=== PATIENT | male | born 1950 | race Caucasian/White ===

== ENCOUNTER 2020-03-08 23:35 | Emergency (ER) | payer MEDICARE, BC, SELFPAY ==
[2020-03-08 23:39] VITALS: BP 152/88; PULSE 85; RESP 18; TEMP 37.6; O2SAT 96; BMI 28.7
--- NOTE | 2020-03-08 23:43 | XR_ITS ---
WS: [id number] XR wrist RT min 3V* [id number] REASON FOR EXAM: injury FINDINGS: A small ossicle is seen adjacent to the styloid process of the radius this appears to be re mote and not fracture. The remaining ulna radius were normal. The carpal bones and metacarpals were normal. XR/XR wrist RT min 3V* [id number] IMPRESSION: Negative right wrist for acute fractures.
--- NOTE | 2020-03-08 23:59 | ED_ITS ---
HPI - Extremity Problem General: Chief complaint: Extremity Injury, Upper Stated complaint: R ARM INJURY Time Seen by Provider: 03/08/20 23:43 Source: patient Mode of arrival: ambulatory Limitations: no limitations History of Present Illness: HPI Narrative: Patient is a 69-year-old male who presents to ED today with complaints of right wrist pain. Patient states he was up on a truck getting something out of his toolbox while holding onto a strap when the strap broke and caused him to fall onto the right wrist. No other injury sustained per patient. MD Complaint: joint paint Onset (ago): hour(s) Pain Consistency: constant Location: right Quality: constant Radiation: none Relieving factors: immobilization Exacerbating factors: range of motion and palpation Associated symptoms: Reports no associated symptoms; Deny chest pain Review of Systems Eyes: Denies: change in vision or blurry vision Card: Denies: chest pain Resp: Denies: shortness of breath GI: Denies: abdominal pain Musc: Reports: joint pain; Denies: neck pain, back pain, extremity pain, extremity swelling or redness Neuro: Denies: headache, numbness in extremities, weakness in extremities or changes in sensation [facility] ED PFSH: Medical History (Updated 03/09/20 @ 00:14 by MARTA Nagel) ASHD (arteriosclerotic heart disease) Essential (primary) hypertension GERD (gastroesophageal reflux disease) Panlobular emphysema Surgical History (Updated 12/31/19 @ 10:14 by Bernardo Guerrier MD) History of colonoscopy History of esophagogastroduodenoscopy (EGD) Social History (Updated 12/31/19 @ 09:43 by DANTE Childs) Smoking and tobacco status: current every day smoker Alcohol intake: current Alcohol type: beer Marital status: History of recent travel: No Physical Exam Const: COMMON NORMALS: no apparent distress, average body habitus, oriented x3, no limitations, healthy appearing, alert and well nourished ORIENTATION/CONSCIOUSNESS: Yes oriented to person, Yes oriented to place and Yes oriented to time Neck/C-Spine: COMMON NORMALS: full ROM CERVICAL SPINE: Yes cervical ROM normal, No pain with cervical ROM and No cervical spine tenderness Chest: COMMONS NORMALS: inspection of chest normal and palpation of chest normal Resp: COMMON NORMALS: normal respiratory effort and clear to auscultation bilaterally AUSCULTATION: clear to auscultation bilaterally Cardio: COMMON NORMALS: regular rate and regular rhythm RATE: regular rate RHYTHM: regular rhythm Back/Pelvis: COMMON NORMALS: thoracic and lumbar spine normal to inspection, no thoracic nor lumbar tenderness and thoraco-lumbar ROM normal Extremity: GENERAL: Yes normal exam except as noted RIGHT UPPER EXTREMITY: Yes wrist (TTP of distal radius; swelling present; no obvious deformity ) Right wrist: Yes ROM (severely limited secondary to pain) Neuro: MANN COMA SCALE: document GCS findings Mann coma scale eye opening: Spontaneous [place] coma scale verbal response: Orientated [place] coma scale motor response: Obey commands Mann coma scale total score: 15 COMMON NORMALS: oriented x3, moves all extremities, no focal motor deficits, no sensory deficits noted and gait normal SENSORIUM/ORIENTATION: Yes alert, Yes oriented to person, Yes oriented to place and Yes oriented to time Skin: COMMON NORMALS: no rashes or lesions noted GENERAL SKIN EXAM: no rashes or lesions noted Course Vital Signs: Vital signs: Vital Signs Temperature 99.6 F 03/08/20 23:39 Pulse Rate 85 03/08/20 23:39 Respiratory Rate 12 03/09/20 00:05 Blood Pressure 152/88 03/08/20 23:39 Pulse Oximetry 96 03/08/20 23:39 MDM - Extremity (Nontraumatic) MDM Narrative: Medical decision making narrative: based on clinical exam I will go ahead and splint and have him follow up with orthopedics Imaging Data^: R wrist XR: My impression: I don't see any obvious fractures-maybe questionable avulsion off distal radius/possible impaction fx Discharge Plan Discharge Patient Disposition: Home, Self-Care Clinical Impression: Injury of right wrist Qualifiers: Encounter type: initial encounter Qualified Code(s): S69.91XA - Unspecified injury of right wrist, hand and finger(s), initial encounter Condition: Stable Prescriptions: New hydrocodone-acetaminophen 5-325 mg tablet 1 tab PO Q6H PRN (Reason: pain) Qty: 15 RF: 0 No Action lisinopril 10 mg tablet 5 mg PO DAILY Qty: 90 RF: 3 omeprazole 20 mg capsule,delayed release(DR/EC) 20 mg PO DAILY Qty: 90 RF: 3 citalopram 40 mg tablet 40 mg PO DAILY Qty: 90 RF: 3 albuterol sulfate [Ventolin HFA] 90 mcg/actuation HFA aerosol inhaler 2 puff INHALATION Q6H PRNRF: 0 folic acid 400 mcg tablet 0.4 mg PO DAILY RF: 0 mecobalamin (vitamin B12) 1,000 mcg tablet,disintegrating 1,000 mcg SUBLINGUAL DAILY RF: 0 aspirin [Adult Aspirin Regimen] 81 mg tablet,delayed release (DR/EC) 81 mg PO DAILY RF: 0 magnesium 200 mg tablet 400 mg PO DAILY RF: 0 lovastatin 40 mg tablet 80 mg PO .AT BEDTIME Qty: 180 RF: 3 Discharge Orders: Discharge Order (Routine); Ordered 03/09/20 Ordered By: Rosi Jain Activity Restrictions/Additional Instructions: Case management should contact you in the next 1 to 2 days to set you up with an appointment for orthopedic follow-up. Coding Level of Care Code ED Fine Grade Operator for [place]is [place] Exam Comprehensive
[2020-03-09 00:05] VITALS: RESP 12
[2020-03-09] MEDS: morphine 4 mg/mL SDV 1 mL IM (00:05)
[2020-03-09 00:26] VITALS: BP 121/63; PULSE 68; RESP 16; O2SAT 100
--- NOTE | 2020-03-09 12:44 | DCPLANNER ---
manager of care had message to schedule a follow up appointment for patient with ortho. manager of care called the ortho clinic, spoke with Amanda, gave clinic patients information. manager of care was told that patients information would be printed and reviewed. Clinic will call shelter case manager and patient with appointment information.
--- NOTE | 2020-03-10 12:43 | DCPLANNER ---
Kianna from ortho called welfare case worker and informed welfare case worker that both of the numbers that ortho clinic called was not in service and could not leave a message to patient. manager etl called [phone] for patient and [phone] for daughter, unable to speak with patient at this time. Ortho clinic and welfare case worker both unable to reach patient at this time and unable to leave voicemail or message for patient.
== END 2020-03-09 00:27 | disposition home or self-care (01) ==
PROVIDERS: Emergency Provider Physician Assistant
DX: S69.91XA Unspecified injury of right wrist, hand and finger(s), initial encounter (principal); W19.XXXA Unspecified fall, initial encounter; Z79.82 Long term (current) use of aspirin; I10 Essential (primary) hypertension; K21.9 Gastro-esophageal reflux disease without esophagitis; F17.210 Nicotine dependence, cigarettes, uncomplicated
CPT/HCPCS: 12345; 29125; 73110; 96372; 99281; 99283; J2270

== ENCOUNTER → 2020-03-16 09:09 | Outpatient (BNVA) | payer OTHER, SELFPAY | PROVIDERS: Visit Provider Orthopaedic Surgery | DX: S69.91XA Unspecified injury of right wrist, hand and finger(s), initial encounter (principal); X58.XXXA Exposure to other specified factors, initial encounter | CPT/HCPCS: 73100; 73110 ==

== ENCOUNTER 2020-03-16 11:05 | Outpatient (CLI) | payer OTHER, SELFPAY | END 2020-03-16 11:06 | disposition home or self-care (01) | LOC: SPT 11:05 | PROVIDERS: Visit Provider Orthopaedic Surgery | DX: Z46.89 Encounter for fitting and adjustment of other specified devices (principal); S69.81XD Other specified injuries of right wrist, hand and finger(s), subsequent encounter; X58.XXXD Exposure to other specified factors, subsequent encounter | CPT/HCPCS: L3908 ==

== ENCOUNTER → 2020-03-30 15:16 | Outpatient (BNVA) | payer OTHER, SELFPAY | PROVIDERS: Visit Provider Orthopaedic Surgery | DX: S63.501A Unspecified sprain of right wrist, initial encounter (principal); X58.XXXA Exposure to other specified factors, initial encounter | CPT/HCPCS: 73110 ==

== ENCOUNTER → 2020-05-11 09:27 | Outpatient (BNVA) | payer MEDICARE, BC, SELFPAY | PROVIDERS: Visit Provider Nurse Practitioner Family | DX: I10 Essential (primary) hypertension (principal); K21.9 Gastro-esophageal reflux disease without esophagitis; E78.5 Hyperlipidemia, unspecified; E53.8 Deficiency of other specified B group vitamins; J43.1 Panlobular emphysema; I25.10 Atherosclerotic heart disease of native coronary artery without angina pectoris; F41.1 Generalized anxiety disorder; F17.200 Nicotine dependence, unspecified, uncomplicated; Z12.5 Encounter for screening for malignant neoplasm of prostate | CPT/HCPCS: 80053; 80061; 85025; G0103 ==

== ENCOUNTER → 2020-05-23 10:18 | Outpatient (BNVA) | payer MEDICARE, BC, SELFPAY | PROVIDERS: Visit Provider Nurse Practitioner Family | DX: E87.5 Hyperkalemia (principal) | CPT/HCPCS: 80048 ==

== ENCOUNTER → 2020-08-24 10:13 | Outpatient (BNVA) | payer MEDICARE, BC, SELFPAY | PROVIDERS: Visit Provider Nurse Practitioner Family | DX: E87.5 Hyperkalemia (principal); I10 Essential (primary) hypertension; E53.8 Deficiency of other specified B group vitamins | CPT/HCPCS: 80053; 80061; 82607; 85025 ==

== ENCOUNTER → 2020-11-16 11:47 | Outpatient (BNVA) | payer MEDICARE, BC, SELFPAY | PROVIDERS: PCP Nurse Practitioner Family; Visit Provider Nurse Practitioner Family | DX: I10 Essential (primary) hypertension (principal); E78.5 Hyperlipidemia, unspecified; E53.8 Deficiency of other specified B group vitamins | CPT/HCPCS: 80053; 80061; 85025 ==

== ENCOUNTER → 2021-02-20 14:50 | Outpatient (BNVA) | payer MEDICARE, BC, SELFPAY | PROVIDERS: PCP Nurse Practitioner Family; Visit Provider Nurse Practitioner Family | DX: I10 Essential (primary) hypertension (principal); E78.5 Hyperlipidemia, unspecified; E53.8 Deficiency of other specified B group vitamins; F41.1 Generalized anxiety disorder; K21.9 Gastro-esophageal reflux disease without esophagitis | CPT/HCPCS: 80053; 80061; 82607; 83735; 85025 ==

== ENCOUNTER → 2022-03-16 09:43 | Outpatient (BNVA) | payer MEDICARE, BC, SELFPAY | PROVIDERS: PCP Nurse Practitioner Family; Visit Provider Nurse Practitioner Family | DX: Z12.5 Encounter for screening for malignant neoplasm of prostate (principal); I10 Essential (primary) hypertension; I25.10 Atherosclerotic heart disease of native coronary artery without angina pectoris; E53.8 Deficiency of other specified B group vitamins; E78.5 Hyperlipidemia, unspecified; Z12.2 Encounter for screening for malignant neoplasm of respiratory organs | CPT/HCPCS: 80053; 80061; 82607; 85025; G0103 ==

== ENCOUNTER → 2022-04-16 10:11 | Outpatient (BNVA) | payer MEDICARE, BC, SELFPAY | PROVIDERS: PCP Nurse Practitioner Family; Visit Provider Internal Medicine Critical Care Medicine | DX: J44.9 Chronic obstructive pulmonary disease, unspecified (principal); E78.5 Hyperlipidemia, unspecified; I25.10 Atherosclerotic heart disease of native coronary artery without angina pectoris; F17.210 Nicotine dependence, cigarettes, uncomplicated; K21.9 Gastro-esophageal reflux disease without esophagitis; I10 Essential (primary) hypertension | CPT/HCPCS: 99204 ==

== ENCOUNTER 2022-05-03 13:08 | Outpatient (CLI) | payer MEDICARE, BC, SELFPAY ==
--- NOTE | 2022-05-03 12:30 | CT_ITS ---
WS: [id number] LDCT LUNG CANCER SCREENING TECHNIQUE: Noncontrast CT of the chest with coronal and sagittal reformatted images. CLINICAL INFORMATION: Lung cancer screening COMPARISON: None. DLP: 81.71 mGy.cm DIvol: Mean CTDIvol: 1.60 (mGy) All CT scans at [facility] use at least one of these dose optimization techniques: automat ed exposure control; mA and/or kV adjustment per patient size (includes targeted exams where dose is matched to clinical indication); or iterative reconstruction. FINDINGS: Lungs are well aerated. No acute pulmonary infiltrates. Mild chronic emphysematous changes. 6 mm pulmonary nodule LEFT upper lobe laterally. Nodular subsegmental atelectasis/fibrosis in the li ngula. Calcified granulomas LEFT lower lobe. Normal caliber thoracic aorta. Aortic calcification. Coronary calcification. No mediastinal or hilar lymphadenopathy. Small esophageal hiatal hernia. Adrenal glands are normal. Mild thoracic kyphosis. Schmorl's nodes in the mid thoracic spine. CT/CT lung screening [id number] IMPRESSION: Recommend 6 month follow-up 6 mm pulmonary nodule LEFT upper lobe l aterally. LUNG-RADS: 3-Probably Benign FOLLOW UP: 6 Month LDCT
--- NOTE | 2022-05-03 13:24 | PFTS_ITS ---
Date of Study:05/03/22 Date of Dictation: 05/05/22 MECHANICS: Postbronchodilator forced vital capacity (FVC) is normal. Postbronchodilator forced expiratory volume in one second (FEV1) is mildly reduced. FEV1/FVC is reduced. There is significant response to bronchodilator FLOW VOLUME LOOP: Sloping of expiratory limb suggestive of airflow obstruction. LUNG VOLUMES: Total lung capacity (TLC) is normal. Residual volume (RV) is increased suggesting air trapping. DIFFUSING CAPACITY FOR CARBON MONOXIDE: mildly reduced. INTERPRETATION: The Spirometry showed mild airflow obstruction. There is significant response to bronchodilators. Lung volumes suggestive of moderate air trapping. There is mild gas transfer defect. Clinical correlation recommended. MTDD
== END 2022-05-03 13:09 | disposition home or self-care (01) ==
LOC: RAD 13:09
PROVIDERS: PCP Nurse Practitioner Family; Visit Provider Internal Medicine Critical Care Medicine
DX: J44.9 Chronic obstructive pulmonary disease, unspecified (principal); F17.200 Nicotine dependence, unspecified, uncomplicated; E78.5 Hyperlipidemia, unspecified
CPT/HCPCS: 71271; 94060; 94726; 94729

== ENCOUNTER → 2022-05-28 09:09 | Outpatient (BNVA) | payer MEDICARE, BC, SELFPAY | PROVIDERS: PCP Nurse Practitioner Family; Visit Provider Internal Medicine Critical Care Medicine | DX: J44.9 Chronic obstructive pulmonary disease, unspecified (principal); F17.210 Nicotine dependence, cigarettes, uncomplicated; I25.10 Atherosclerotic heart disease of native coronary artery without angina pectoris | CPT/HCPCS: 99214 ==

== ENCOUNTER → 2022-07-13 08:37 | Outpatient (BNVA) | payer MEDICARE, BC, SELFPAY | PROVIDERS: PCP Nurse Practitioner Family; Visit Provider Nurse Practitioner Family | DX: M25.511 Pain in right shoulder (principal) | CPT/HCPCS: 73030 ==

== ENCOUNTER 2022-11-08 10:06 | Outpatient (CLI) | payer MEDICARE, BC, SELFPAY ==
--- NOTE | 2022-11-08 10:30 | CTR_ITS ---
PROCEDURE INFORMATION: Exam: CT Chest Without Contrast; Diagnostic Exam date and time: 11/08/2022 10:53 AM Age: 72 years old Clinical indication: Condition or disease; Lung condition and disease; Pulmonary nodule, solitary; Additional info: 6 month f/u nodule, fibrosis, atelectasis TECHNIQUE: Imaging protocol: Diagnostic computed tomography of the chest without contrast. Radiation optimization: All CT scans at this facility use at least one of these dose optimization techniques: automated exposure control; mA and/or kV adjustment per patient size (includes targeted exams where dose is matched to clinical indication); or iterative reconstruction. COMPARISON: CT lung screening [id number] 05/03/2022 1:54 PM RADIATION DOSE METRICS: Total DLP (mGy-cm): 376.41 FINDINGS: Lungs: COPD, interstitial prominence, and chronic granulomatous disease. Mild parenchymal stranding in the lingula. Stable 4 mm noncalcified lingular nodule. For patients at low risk (minimal or absent history of smoking and of other known risk factors), no routine follow-up is indicated. For patients at high risk (history of smoking or of other known risk factors), consider optional CT Chest at 12 months. (Reference: Jodie). Pleural spaces: No pleural effusion. Heart: Coronary artery calcification. Lymph nodes: Subcentimeter lymph nodes. Vasculature: Calcification and ectasia of the thoracic aorta. Diaphragm: Small hiatal hernia. Stomach and bowel: Questionable wall thickening in the nondistended stomach. Prominent stool. Bones/joints: Schmorl's nodes, vertebral endplate irregularity, and degenerative change. Soft tissues: Unremarkable. CT/CT chest con [id number] IMPRESSION: 1. COPD, interstitial prominence, and chronic granulomatous disease. 2. Stable 4 mm noncalcified lingular nodule. 3. Additional findings as described above.
== END 2022-11-08 10:07 | disposition home or self-care (01) ==
LOC: RAD 10:07
PROVIDERS: PCP Nurse Practitioner Family; Visit Provider Internal Medicine Pulmonary Disease
DX: R91.8 Other nonspecific abnormal finding of lung field (principal); J98.11 Atelectasis; J44.9 Chronic obstructive pulmonary disease, unspecified
CPT/HCPCS: 71250

== ENCOUNTER → 2022-11-26 10:46 | Outpatient (BNVA) | payer MEDICARE, BC, SELFPAY | PROVIDERS: PCP Nurse Practitioner Family; Visit Provider Nurse Practitioner Family | DX: I25.10 Atherosclerotic heart disease of native coronary artery without angina pectoris (principal) | CPT/HCPCS: 80053; 80061; 82607; 83735; 84443; 85025 ==

== ENCOUNTER → 2023-02-04 13:31 | Outpatient (BNVA) | payer MEDICARE, BC, SELFPAY | PROVIDERS: PCP Nurse Practitioner Family; Visit Provider Internal Medicine | DX: I25.10 Atherosclerotic heart disease of native coronary artery without angina pectoris (principal); E78.5 Hyperlipidemia, unspecified; I10 Essential (primary) hypertension; F17.210 Nicotine dependence, cigarettes, uncomplicated; Z79.82 Long term (current) use of aspirin | CPT/HCPCS: 99214 ==

== ENCOUNTER → 2023-04-03 10:16 | Outpatient (BNVA) | payer MEDICARE, BC, SELFPAY | PROVIDERS: PCP Nurse Practitioner Family; Visit Provider Nurse Practitioner Family | DX: E53.8 Deficiency of other specified B group vitamins (principal); I10 Essential (primary) hypertension; E78.5 Hyperlipidemia, unspecified | CPT/HCPCS: 80053; 80061; 82607; 82746; 84443; 85025 ==

== ENCOUNTER → 2023-04-23 15:17 | Outpatient (BNVA) | payer MEDICARE, BC, SELFPAY | PROVIDERS: PCP Nurse Practitioner Family; Visit Provider Internal Medicine Pulmonary Disease | DX: J44.9 Chronic obstructive pulmonary disease, unspecified (principal); I25.10 Atherosclerotic heart disease of native coronary artery without angina pectoris; F17.210 Nicotine dependence, cigarettes, uncomplicated | CPT/HCPCS: 99214 ==

== ENCOUNTER 2023-07-15 20:00 | Outpatient (CLI) | payer OTHER, SELFPAY | END 2023-07-15 20:01 | disposition home or self-care (01) | LOC: SLEEP 07-16 05:40 | PROVIDERS: PCP Nurse Practitioner Family; Visit Provider Family Medicine | DX: G47.33 Obstructive sleep apnea (adult) (pediatric) (principal); R06.83 Snoring | CPT/HCPCS: 95810 ==

== ENCOUNTER 2023-09-02 12:46 | Outpatient (CLI) | payer OTHER, SELFPAY ==
--- NOTE | 2023-09-02 13:00 | USCV_ITS ---
Adonis Abraham Age: 73 Gender: M : 1950 Exam Date: 09/02/2023 13:04 Ordering Phys: Narayan [place] Technologist: ANDREW Exam Location: [facility] Indication: CAD, SOB BP: 138 / 82 HR: 61 Rhythm: Sinus Technical Quality: Adequate MEASUREMENTS (Male / Female) Normal Values 2D ECHO LV Diastolic Diameter PLAX 4.9 cm 4.2 - 5.9 / 3.9 - 5.3 cm LV Systolic Diameter PLAX 2.4 cm IVS Diastolic Thickness 1.1 cm 0.6 - 1.0 / 0.6 - 0.9 cm IVS Systolic Thickness 1.6 cm LVPW Diastolic Thickness 1.0 cm 0.6 - 1.0 / 0.6 - 0.9 cm LVPW Systolic Thickness 1.6 cm LVOT Diameter 2.1 cm LV Ejection Fraction 2D Teich 81.6 % LA Diameter 2.4 cm LA Width 2.9 cm LA Height 3.4 cm RA Width 3.6 cm RA Height 4.0 cm Aorta at Sinotubular Diameter 3.1 cm IVC Diameter 1.8 cm M-MODE Aortic Annulus Diameter 3.7 cm LA Ao Ratio MM 0.6 MV E Point Septal Separation 0.4 cm DOPPLER AV Peak Velocity 158.0 cm/s LVOT Peak Velocity 94.0 cm/s AV Area Cont Eq vti 2.4 cm squared AV Area Cont Eq pk 2.1 cm squared MV Peak Velocity 110.0 cm/s MV Area PHT 3.7 cm squared Mitral E to A Ratio 1.2 MV E' Velocity 56.5 cm/s Mitral E to MV E' Ratio 8.6 Mitral E to LV E' Lateral Ratio 7.3 Mitral E to LV E' Septal Ratio 10.4 TR Peak Velocity 93.0 cm/s TR Peak Gradient 3.5 mmHg Right Atrial Pressure 5.0 mmHg Pulmonary Artery Systolic Pressu 8.5 mmHg PV Peak Velocity 127.0 cm/s RV Acceleration Time 0.2 s RV Ejection Time 0.4 s RV AcT/ET 0.6 FINDINGS Left Ventricle Left ventricle is normal in size. LV systolic function is normal with EF of 50 to 55%. No regional wall motion normalities are seen. Right Ventricle Normal in size and function Right Atrium Normal in size Left Atrium Normal in size. Mitral Valve Structurally normal mitral valve. Trace mitral regurgitation Aortic Valve Structurally normal aortic valve. No significant stenosis or regurgitation Tricuspid Valve Mild tricuspid regurgitation. Insufficient TR jet to evaluate RVSP. Pulmonic Valve Trace pulmonic regurgitation Pericardium Normal Aorta Normal in size IVC Appears to be normal CONCLUSIONS LV systolic function is normal with EF of 50 to 55%. Trace mitral regurgitation Mild tricuspid regurgitation Trace pulmonic regurgitation No comparison studies are available Hitesh De La Fuente MD (Electronically Signed) Final Date: 03 September 2023 08:46 S
== END 2023-09-02 12:47 | disposition home or self-care (01) ==
LOC: RAD 12:47
PROVIDERS: PCP Nurse Practitioner Family; Visit Provider Chiropractor
DX: I25.10 Atherosclerotic heart disease of native coronary artery without angina pectoris (principal); R06.02 Shortness of breath; I07.1 Rheumatic tricuspid insufficiency
CPT/HCPCS: 93306

== ENCOUNTER → 2023-11-27 12:06 | Outpatient (BNVA) | payer OTHER, SELFPAY | PROVIDERS: PCP Nurse Practitioner Family; Visit Provider Family Medicine | DX: I10 Essential (primary) hypertension (principal); Z12.5 Encounter for screening for malignant neoplasm of prostate; E78.5 Hyperlipidemia, unspecified; Z13.21 Encounter for screening for nutritional disorder; I25.10 Atherosclerotic heart disease of native coronary artery without angina pectoris | CPT/HCPCS: 80053; 80061; 82306; 84443; 85025; G0103 ==

== ENCOUNTER → 2024-06-25 11:53 | Outpatient (BNVA) | payer MEDICARE, BC, SELFPAY | PROVIDERS: PCP Nurse Practitioner Family; Visit Provider Nurse Practitioner Family | DX: I10 Essential (primary) hypertension (principal); N52.9 Male erectile dysfunction, unspecified; N39.0 Urinary tract infection, site not specified; E78.5 Hyperlipidemia, unspecified; F41.1 Generalized anxiety disorder; F41.9 Anxiety disorder, unspecified; F32.A Depression, unspecified; I25.10 Atherosclerotic heart disease of native coronary artery without angina pectoris; N41.0 Acute prostatitis; N40.0 Benign prostatic hyperplasia without lower urinary tract symptoms | CPT/HCPCS: 80053; 80061; 84402; 84403; 84443; 85025; G0103 ==

== ENCOUNTER 2025-03-26 09:45 | Outpatient (CLI) | payer OTHER, SELFPAY ==
--- NOTE | 2025-03-26 09:47 | PETR_ITS ---
PROCEDURE INFORMATION: Exam: PET/CT Skull Base to Mid-thigh Exam date and time: 03/26/2025 10:49 AM Age: 74 years old Clinical indication: Abnormal findings; Lung nodule; Additional info: Abnormal chest imaging LABS AND CLINICAL REPORTS: Glucose: 90 mg/dl Treatment strategy for malignancy (PET staging): Initial Staging (PI) TECHNIQUE: Imaging protocol: Following at least four-hour fasting and following the injection of radiopharmaceutical, low dose CT images were obtained. Then, PET images were obtained. Attenuation corrected images were constructed using the CT scan. Fused images of PET and CT were reviewed. The standardized uptake values (SUV) reported below are maximum values within a region of interest, expressed in gm/ml. Exam includes orbital meatal line to mid-thigh. SUV normalization method: BodyWeight Radiopharmaceutical: 10.96 mCi F-18 FDG (Fluorodeoxyglucose), IV. Time of imaging post radiopharmaceutical administration: 47 minutes Injection site: left ac COMPARISON: 1. CT chest wo con [id number] 03/01/2025 1:[address] chest wo con [id number] 08/31/2024 1:[address] chest wo con [id number] 11/08/2022 10:53 AM FINDINGS: Brain: Visualized brain has normal physiologic uptake. Pharynx: No abnormal uptake. Larynx: Symmetric uptake is likely physiologic. Lungs, pleura and trachea: Pulmonary emphysematous change. Slight thickening adjacent to medial left upper lobe paraseptal emphysematous change on axial image 85 showing FDG uptake with SUV max 5.0. Subpleural medial basal left lower lobe nodule measures 2.2 x 1.0 cm on axial image 142 and shows SUV max 9.0. Left lower lobe calcified granulomata. Heart: Normal physiologic uptake. Coronary arteries: Heavy coronary artery calcification. Mediastinal space: No abnormal uptake. Liver: No abnormal uptake. Gallbladder and biliary ducts: No abnormal uptake. Pancreas: No abnormal uptake. Spleen: No abnormal uptake. Adrenal glands: No abnormal uptake. Kidneys and ureters: Normal physiologic uptake. Stomach and bowel: No abnormal uptake. Colonic diverticulosis without findings of diverticulitis. Reproductive: Prostatomegaly measures 5.2 cm in transverse dimension. No abnormal uptake. Vasculature: No abnormal uptake. Moderate to heavy systemic atherosclerotic calcification without aortic aneurysm. Lymph nodes: No abnormal uptake. No lymphadenopathy in the head, neck, chest, abdomen, pelvis, and extremities. Calcified left hilar nodes in keeping with sequela of old granulomatous disease. Skeleton: Small amorphous calcific density adjacent to the left humeral head with associated FDG uptake extending over the humeral head showing SUV max 7.2 on axial image 62. Mild degenerative change along the spine and acromioclavicular joints. Soft tissues: No abnormal uptake in the visualized head, neck, chest, abdomen, pelvis, and extremities. METRICS: Mediastinal blood pool: SUV mean 1.9 Liver uptake: SUV mean 2.3 PET/PET skull to thigh INIT [id number] IMPRESSION: 1. FDG-avid subpleural medial basal left lower lobe nodule suspicious for malignancy. 2. Moderately FDG avid slight thickening adjacent to medial left upper lobe paraseptal emphysematous change is likely inflammatory. 3. Left humeral head findings suggestive of calcific tendinitis with intraosseous involvement. 4. Additional chronic and incidental findings as above, to include atherosclerosis with heavy coronary artery calcification, colonic diverticulosis, and prostatomegaly.
== END 2025-03-26 09:46 | disposition home or self-care (01) ==
PROVIDERS: PCP Nurse Practitioner Family; Visit Provider Family Medicine
DX: R91.1 Solitary pulmonary nodule (principal); R93.89 Abnormal findings on diagnostic imaging of other specified body structures; J43.8 Other emphysema; J84.10 Pulmonary fibrosis, unspecified; I25.10 Atherosclerotic heart disease of native coronary artery without angina pectoris; K57.30 Diverticulosis of large intestine without perforation or abscess without bleeding; N40.0 Benign prostatic hyperplasia without lower urinary tract symptoms; I70.0 Atherosclerosis of aorta; R59.0 Localized enlarged lymph nodes; M47.9 Spondylosis, unspecified; M19.012 Primary osteoarthritis, left shoulder; M19.011 Primary osteoarthritis, right shoulder
CPT/HCPCS: 78815; A9552